=== PATIENT | male | born 1970 | race Caucasian/White ===

== ENCOUNTER 2017-08-08 19:43 | Emergency (ER) | payer BC ==
--- NOTE | 2017-08-08 21:29 | US ---
EXAMINATION TYPE: US venous doppler duplex LE RT DATE OF EXAM: 08/08/2017 8:51 PM COMPARISON: NONE CLINICAL HISTORY: Pain. SIDE PERFORMED: TECHNIQUE: The lower extremity deep venous system is examined utilizing real time linear array sonog sera with graded compression, doppler sonography and color-flow sonography. VESSELS IMAGED: External Iliac Vein (EIV) Common Femoral Vein Deep Femoral Vein Greater Saphenous Vein * Femoral Vein Popliteal Vein Small Saphenous Vein * Proximal Calf Veins (* superficial vessels) Right Leg: Negative for DVT No evidence of DVT right leg. IMPRESSION: Normal exam. No evidence of deep venous thrombosis in the right leg.
--- NOTE | 2017-08-08 21:36 | ED ---
General Adult HPI - General Chief complaint: Extremity Injury, Lower Stated complaint: poss blood clot-sent by Time Seen by Provider: 08/08/17 20:01 Source: patient, RN notes reviewed, old records reviewed Mode of arrival: ambulatory Limitations: no limitations - History of Present Illness Initial comments: This is a 46-year-old male to the ER for evaluation regards to possible DVT. Patient was sent in by family doctor as he has right leg pain he might have a DVT. Patient denies shortness of breath denies chest pain. No recent travel history no sick contacts. Patient has no prior evaluation for similar issue or complaints. No modifying factors for right leg pain - Related Data Home Medications Medication Instructions Recorded Confirmed Acyclovir [Zovirax] 200 mg PO HS 08/08/17 08/08/17 Ascorbic Acid [Vitamin C] 500 mg PO HS 08/08/17 08/08/17 Aspirin [Adult Low Dose Aspirin EC] 81 mg PO HS 08/08/17 08/08/17 buPROPion XL [Wellbutrin Xl] 300 mg PO HS 08/08/17 08/08/17 Allergies Allergy/AdvReac Type Severity Reaction Status Date / Time Iodinated Contrast- Oral and Allergy Unknown Verified 08/08/17 20:01 IV Dye meperidine [From Demerol] Allergy Rash/Hives Verified 08/08/17 20:01 Mushroom Allergy Swelling Verified 08/08/17 20:01 Review of Systems ROS Statement: Those systems with pertinent positive or pertinent negative responses have been documented in the HPI. ROS Other: All systems not noted in ROS Statement are negative. Past Medical History Past Medical History: No Reported History History of Any Multi-Drug Resistant Organisms: None Reported Past Surgical History: Appendectomy Past Psychological History: No Psychological Hx Reported Smoking Status: Current every day smoker Past Alcohol Use History: Occasional Past Drug Use History: None Reported General Exam Limitations: no limitations General appearance: alert, in no apparent distress Head exam: Present: atraumatic, normocephalic, normal inspection Eye exam: Present: normal appearance, PERRL, EOMI. Absent: scleral icterus, conjunctival injection, periorbital swelling ENT exam: Present: normal exam, mucous membranes moist Neck exam: Present: normal inspection. Absent: tenderness, meningismus, lymphadenopathy Respiratory exam: Present: normal lung sounds bilaterally. Absent: respiratory distress, wheezes, rales, rhonchi, stridor Cardiovascular Exam: Present: regular rate, normal rhythm, normal heart sounds. Absent: systolic murmur, diastolic murmur, rubs, gallop, clicks GI/Abdominal exam: Present: soft, normal bowel sounds. Absent: distended, tenderness, guarding, rebound, rigid Extremities exam: Present: normal inspection, full ROM, normal capillary refill. Absent: tenderness, pedal edema, joint swelling, calf tenderness Back exam: Present: normal inspection Neurological exam: Present: alert, oriented X3, CN II-XII intact Psychiatric exam: Present: normal affect, normal mood Skin exam: Present: warm, dry, intact, normal color. Absent: rash Course Vital Signs 08/08/17 08/08/17 19:47 22:49 Temperature 97.9 F 98.1 F Pulse Rate 85 77 Respiratory 17 18 Rate Blood Pressure 161/94 132/73 O2 Sat by Pulse 95 96 Oximetry Medical Decision Making - Medical Decision Making 46 male the ER for evaluation regards to possible right lower extremity DVTs inject secondary to right lower extremity pain. Patient's SOUNDS negative for DVT. Patient can be discharged home - Lab Data Result diagrams: 08/08/17 21:46 08/08/17 21:46 Lab Results 08/08/17 08/08/17 Range/Units 21:46 21:46 WBC 8.6 (3.8-10.6) k/uL RBC 4.93 (4.30-5.90) m/uL Hgb 15.4 (13.0-17.5) gm/dL Hct 45.2 (39.0-53.0) % MCV 91.8 (80.0-100.0) fL MCH 31.3 (25.0-35.0) pg MCHC 34.1 (31.0-37.0) g/dL RDW 12.5 (11.5-15.5) % Plt Count 300 (150-450) k/uL Neutrophils % 50 % Lymphocytes % 40 % Monocytes % 4 % Eosinophils % 3 % Basophils % 1 % Neutrophils # 4.3 (1.3-7.7) k/uL Lymphocytes # 3.4 (1.0-4.8) k/uL Monocytes # 0.4 (0-1.0) k/uL Eosinophils # 0.3 (0-0.7) k/uL Basophils # 0.1 (0-0.2) k/uL Sodium 143 (137-145) mmol/L Potassium 4.2 (3.5-5.1) mmol/L Chloride 107 (98-107) mmol/L Carbon Dioxide 25 (22-30) mmol/L Anion Gap 11 mmol/L BUN 15 (9-20) mg/dL Creatinine 0.80 (0.66-1.25) mg/dL Est GFR (MDRD) Af Amer >60 (>60 ml/min/1.73 sqM) Est GFR (MDRD) Non-Af >60 (>60 ml/min/1.73 sqM) Glucose 89 (74-99) mg/dL Calcium 9.7 (8.4-10.2) mg/dL Triglycerides 175 H (<150) mg/dL Cholesterol 195 (<200) mg/dL LDL Cholesterol, Calc 130 H (0-99) mg/dL HDL Cholesterol 30 L (40-60) mg/dL TSH 1.630 (0.465-4.680) mIU/L - Radiology Data Radiology results: report reviewed (Ultrasound right lower extremity is negative for DVT), image reviewed Disposition Clinical Impression: Right leg pain Disposition: HOME SELF-CARE Condition: Good Instructions: Leg Pain (ED) Referrals: Clement Lundberg DO [Primary Care Provider] - 1-2 days
[2017-08-08 21:56] LABS: Basophils # (A) 0.1 k/uL (0-0.2); Basophils % (A) 1 %; Eosinophils # (A) 0.3 k/uL (0-0.7); Eosinophils % (A) 3 %; HCT 45.2 % (39.0-53.0); HGB 15.4 gm/dL (13.0-17.5); Lymphocytes # (A) 3.4 k/uL (1.0-4.8); Lymphocytes % (A) 40 %; MCH 31.3 pg (25.0-35.0); MCHC 34.1 g/dL (31.0-37.0); MCV 91.8 fL (80.0-100.0); Mean Platelet Volume 7.2; Monocytes # (A) 0.4 k/uL (0-1.0); Monocytes % (A) 4 %; Neutrophils # (A) 4.3 k/uL (1.3-7.7); Neutrophils % (A) 50 %; Platelet Count 300 k/uL (150-450); RBC 4.93 m/uL (4.30-5.90); RDW 12.5 % (11.5-15.5); WBC 8.6 k/uL (3.8-10.6)
[2017-08-08 22:04] LABS: Anion Gap 11 mmol/L; Blood Urea Nitrogen 15 mg/dL (9-20); Calcium 9.7 mg/dL (8.4-10.2); Carbon Dioxide 25 mmol/L (22-30); Chloride 107 mmol/L (98-107); Cholesterol 195 mg/dL (<200); Glucose 89 mg/dL (74-99); HDL Cholesterol 30 mg/dL (40-60); LDL Cholesterol,Calculated 130 mg/dL (0-99); Potassium 4.2 mmol/L (3.5-5.1); Sodium 143 mmol/L (137-145); Triglycerides 175 mg/dL (<150)
[2017-08-08 22:50] VITALS: BP 132/73; PULSE 77; RESP 18; TEMP 98.1
--- NOTE | 2017-08-11 00:48 | CDI ---
Documentation Clarification OP Dear Silvestre MONGE, DO Please do addendum to ED report for HPI , Physical exam and MDM. Thank you, Christi Novak Product Development Intern If you have any question, Please contact property site manager at [phone] [facility]
== END 2017-08-08 22:50 | disposition home or self-care (01) ==
LOC: EC 19:43
DX: M79.604 Pain in right leg (principal); F17.200 Nicotine dependence, unspecified, uncomplicated; Z79.82 Long term (current) use of aspirin; Z79.899 Other long term (current) drug therapy; Z91.041 Radiographic dye allergy status; Z91.018 Allergy to other foods; Z88.5 Allergy status to narcotic agent
CPT/HCPCS: 36415; 80048; 80061; 84443; 85025; 99284

== ENCOUNTER 2018-12-09 01:51 | Emergency (ER) | payer BC ==
[2018-12-09] MEDS ORDERED: DIAZEPAM 5 MG/ML 2 ML INJ IM ONE (02:09)
[2018-12-09] MEDS ORDERED: KETOROLAC 30 MG/ML 1 ML VIAL IM STA (02:09)
--- NOTE | 2018-12-09 02:54 | ED ---
General Adult HPI - General Chief complaint: Extremity Injury, Lower Stated complaint: Lft Leg Pain Time Seen by Provider: 12/09/18 02:00 Source: patient Mode of arrival: ambulatory Limitations: no limitations - History of Present Illness Initial comments: 48-year-old male patient presents to the emergency department today for evaluation of spasm of the left calf. Patient states he frequently gets spasms in his calves. States he has for years. Patient states he is usually able to get them to resolve however this one is lasting longer. Patient states he does have history of DVT. His symptoms are usually different. He denies any numbness or tingling to the extremity. Denies any leg swelling. Denies any recent injury. He denies any increase in strenuous activity with the leg. Denies fever or chills. Denies any recent car rides or long travel. Patient denies any recent rash, shortness breath, palpitations, chest pain, abdominal pain, nausea, vomiting, diarrhea, constipation, back pain, numbness, tingling, dizziness, weakness, hematuria, dysuria, urinary urgency, urinary frequency, headache, visual changes, or any other complaints. - Related Data Home Medications Medication Instructions Recorded Confirmed No Known Home Medications 12/09/18 12/09/18 Allergies Allergy/AdvReac Type Severity Reaction Status Date / Time Iodinated Contrast- Oral and Allergy Unknown Verified 08/08/17 20:01 IV Dye meperidine [From Demerol] Allergy Rash/Hives Verified 08/08/17 20:01 Mushroom Allergy Swelling Verified 08/08/17 20:01 Review of Systems ROS Statement: Those systems with pertinent positive or pertinent negative responses have been documented in the HPI. ROS Other: All systems not noted in ROS Statement are negative. Past Medical History Past Medical History: Deep Vein Thrombosis (DVT) History of Any Multi-Drug Resistant Organisms: None Reported Past Surgical History: Appendectomy Past Psychological History: No Psychological Hx Reported Smoking Status: Former smoker Past Alcohol Use History: Occasional Past Drug Use History: None Reported General Exam Limitations: no limitations General appearance: alert, in no apparent distress, other (Physical well- developed, well-nourished adult male patient in no acute distress. Vital signs upon presentation are temperature 97.5F, pulse 95, respirations 20, blood pressure 134/81, pulse ox 95% on room air.) Eye exam: Present: normal appearance, PERRL, EOMI. Absent: scleral icterus, conjunctival injection, periorbital swelling ENT exam: Present: normal exam, normal oropharynx, mucous membranes moist Respiratory exam: Present: normal lung sounds bilaterally. Absent: respiratory distress, wheezes, rales, rhonchi, stridor Cardiovascular Exam: Present: regular rate, normal rhythm, normal heart sounds. Absent: systolic murmur, diastolic murmur, rubs, gallop, clicks Extremities exam: Present: full ROM, tenderness (Left calf), normal capillary refill, other (Muscle spasm noted to the left. Skin is otherwise pink, warm, dry. Cap refills less than 3 seconds. Pedal pulses are 2+ and equal bilaterally. There is no leg swelling. No erythema.). Absent: normal inspection, pedal edema, joint swelling, calf tenderness Neurological exam: Present: alert, oriented X3, CN II-XII intact Psychiatric exam: Present: normal affect, normal mood Skin exam: Present: warm, dry, intact, normal color. Absent: rash Course Vital Signs 12/09/18 01:56 Temperature 97.5 F L Pulse Rate 95 Respiratory 20 Rate Blood Pressure 134/81 O2 Sat by Pulse 95 Oximetry Medical Decision Making - Medical Decision Making 48-year-old male patient presented to the emergency department today for evaluation of spasms of left calf. Physical examination did reveal muscle spasms left calf muscles. There is no swelling. No erythema. Patient is afebrile. Patient was given IM Valium and Toradol here in the emergency department. Upon reevaluation does report improvement of symptoms. He'll be discharged this time with a starter pack of Flexeril. He is instructed to perform gentle stretching exercises and apply warm moist heat. He is instructed to follow-up with his primary care physician for recheck in 1-2 days. Return parameters discussed in detail. He verbalizes understanding and agrees with this plan. Disposition Clinical Impression: Muscle spasm of left calf Disposition: HOME SELF-CARE Condition: Good Instructions (If sedation given, give patient instructions): Muscle Spasm (ED) Additional Instructions: Apply warm moist heat to the left calf. Perform gentle stretching and range of motion exercises. Take medication as directed. Follow-up with your primary care physician for recheck in 1-2 days. Return to the emergency department for any new, worsening, or concerning symptoms. Please note patient did receive Valium intramuscular in the emergency department which show as a benzodiazepine on drug screen. Is patient prescribed a controlled substance at d/c from ED?: No Referrals: Clement Lundberg DO [Primary Care Provider] - 1-2 days Time of Disposition: 03:55
[2018-12-09] MEDS ORDERED: CYCLOBENZAPRINE 10MG STARTER 3 TAB BTL PO STA (03:53)
[2018-12-09 04:07] VITALS: BP 122/81; PULSE 71; RESP 16; TEMP 98.1
== END 2018-12-09 04:06 | disposition home or self-care (01) ==
LOC: EC 01:51
DX: M62.831 Muscle spasm of calf (principal); Z86.718 Personal history of other venous thrombosis and embolism; Z87.891 Personal history of nicotine dependence; Z91.018 Allergy to other foods; Z91.041 Radiographic dye allergy status; Z88.5 Allergy status to narcotic agent
CPT/HCPCS: 99283; 96372 ×2; J3360; J1885